=== PATIENT | male | born 1955 | race Two or more races ===

== ENCOUNTER 2019-11-25 11:43 | Outpatient (REF) | payer MEDICAID, SELFPAY | END 2019-11-25 11:44 | disposition home or self-care (01) | LOC: HO.WFDLDS 11:43 | PROVIDERS: Visit Provider Internal Medicine | DX: Z20.828 Contact with and (suspected) exposure to other viral communicable diseases (principal) | CPT/HCPCS: 87635 ==

== ENCOUNTER 2019-12-17 11:48 | Outpatient (REF) | payer MEDICAID, SELFPAY | END 2019-12-17 11:49 | disposition home or self-care (01) | LOC: HO.WFDLDS 11:48 | PROVIDERS: Visit Provider Internal Medicine | DX: Z20.828 Contact with and (suspected) exposure to other viral communicable diseases (principal) | CPT/HCPCS: U0003 ==

== ENCOUNTER 2020-03-10 09:52 | Outpatient (REF) | payer MEDICAID, SELFPAY | END 2020-03-10 09:53 | disposition home or self-care (01) | LOC: HO.WFDLDS 09:52 | PROVIDERS: Visit Provider Internal Medicine | DX: Z20.822 Contact with and (suspected) exposure to COVID-19 (principal) | CPT/HCPCS: 36415; C9803; U0003 ==

== ENCOUNTER 2020-08-06 12:19 | Outpatient (REF) | payer MEDICAID, SELFPAY ==
--- NOTE | ~2020-08-06 | XR_ITS ---
EXAMINATION: CR X-RAY CERVICAL, THORACIC, LUMBAR SPINE CLINICAL INFORMATION: Neck and back pain. COMPARISON: None TECHNIQUE: 3 views each of the cervical, thoracic and lumbar spine were obtained. FINDINGS: Cervical: Mild to moderate degenerative changes are seen at C5-6 and C6-7 with disc space narrowing, sclerosis and adjacent endplates and moderate marginal osteophyte formation. There is no acute fracture. The odontoid process is intact. The prevertebral soft tissues are unremarkable. Thoracic: Normal thoracic kyphosis and spinal alignment. Mild to moderate multilevel marginal osteophyte formation. No acute abnormality. Lumbar: Normal lumbar lordosis and spinal alignment. The vertebral bodies and intervertebral disc spaces are unremarkable. The facet joints are unremarkable. XR/XR cervical spine 3V IMPRESSION: 1. Multilevel degenerative changes in the cervical and thoracic spine as detailed above. No significant lumbar abnormality. No acute abnormality.
--- NOTE | ~2020-08-06 | XR_ITS ---
EXAMINATION: CR X-RAY CERVICAL, THORACIC, LUMBAR SPINE CLINICAL INFORMATION: Neck and back pain. COMPARISON: None TECHNIQUE: 3 views each of the cervical, thoracic and lumbar spine were obtained. FINDINGS: Cervical: Mild to moderate degenerative changes are seen at C5-6 and C6-7 with disc space narrowing, sclerosis and adjacent endplates and moderate marginal osteophyte formation. There is no acute fracture. The odontoid process is intact. The prevertebral soft tissues are unremarkable. Thoracic: Normal thoracic kyphosis and spinal alignment. Mild to moderate multilevel marginal osteophyte formation. No acute abnormality. Lumbar: Normal lumbar lordosis and spinal alignment. The vertebral bodies and intervertebral disc spaces are unremarkable. The facet joints are unremarkable. XR/XR lumbar spine 2-3V IMPRESSION: 1. Multilevel degenerative changes in the cervical and thoracic spine as detailed above. No significant lumbar abnormality. No acute abnormality.
--- NOTE | ~2020-08-06 | XR_ITS ---
EXAMINATION: CR X-RAY CERVICAL, THORACIC, LUMBAR SPINE CLINICAL INFORMATION: Neck and back pain. COMPARISON: None TECHNIQUE: 3 views each of the cervical, thoracic and lumbar spine were obtained. FINDINGS: Cervical: Mild to moderate degenerative changes are seen at C5-6 and C6-7 with disc space narrowing, sclerosis and adjacent endplates and moderate marginal osteophyte formation. There is no acute fracture. The odontoid process is intact. The prevertebral soft tissues are unremarkable. Thoracic: Normal thoracic kyphosis and spinal alignment. Mild to moderate multilevel marginal osteophyte formation. No acute abnormality. Lumbar: Normal lumbar lordosis and spinal alignment. The vertebral bodies and intervertebral disc spaces are unremarkable. The facet joints are unremarkable. XR/XR thoracic spine 3V IMPRESSION: 1. Multilevel degenerative changes in the cervical and thoracic spine as detailed above. No significant lumbar abnormality. No acute abnormality.
== END 2020-08-06 12:20 | disposition home or self-care (01) ==
LOC: HO.XRAY 12:19
PROVIDERS: PCP Internal Medicine Geriatric Medicine; Referring Provider Internal Medicine Geriatric Medicine; Visit Provider Registered Nurse
DX: M54.2 Cervicalgia (principal); M54.9 Dorsalgia, unspecified; V89.2XXA Person injured in unspecified motor-vehicle accident, traffic, initial encounter
CPT/HCPCS: 72040; 72072; 72100

== ENCOUNTER → 2021-07-27 08:12 | Outpatient (BNVA) | payer MEDICARE, MEDICAID, SELFPAY | PROVIDERS: PCP Internal Medicine Geriatric Medicine; Visit Provider Surgery | DX: R10.30 Lower abdominal pain, unspecified (principal); N50.89 Other specified disorders of the male genital organs; E11.9 Type 2 diabetes mellitus without complications; I10 Essential (primary) hypertension; E78.00 Pure hypercholesterolemia, unspecified; E66.01 Morbid (severe) obesity due to excess calories | CPT/HCPCS: 99202 ==

== ENCOUNTER → 2022-01-13 09:42 | Outpatient (BNVA) | payer OTHER, SELFPAY | PROVIDERS: PCP Internal Medicine Geriatric Medicine; Referring Provider Internal Medicine Geriatric Medicine; Visit Provider Surgery | DX: Z12.11 Encounter for screening for malignant neoplasm of colon (principal); R10.9 Unspecified abdominal pain | CPT/HCPCS: 99202 ==

== ENCOUNTER 2022-01-17 12:14 | Outpatient (REF) | payer OTHER, SELFPAY ==
[2022-01-17 14:26] LABS: Blood Urea Nitrogen 20 mg/dL (9-16); Estimated Glomerular Filt Rate > 60
== END 2022-01-17 12:15 | disposition home or self-care (01) ==
LOC: HO.LAB 12:14
PROVIDERS: PCP Internal Medicine Geriatric Medicine; Visit Provider Surgery
DX: R10.9 Unspecified abdominal pain (principal)
CPT/HCPCS: 36415; 82565; 84520

== ENCOUNTER 2022-03-09 10:26 | Outpatient (REF) | payer OTHER, SELFPAY ==
[2022-03-09 12:23] LABS: Blood Urea Nitrogen 19 mg/dL (9-16); Estimated Glomerular Filt Rate > 60
== END 2022-03-09 10:27 | disposition home or self-care (01) ==
LOC: HO.LAB 10:26
PROVIDERS: PCP Internal Medicine Geriatric Medicine; Visit Provider Surgery
DX: R10.9 Unspecified abdominal pain (principal)
CPT/HCPCS: 36415; 82565; 84520

== ENCOUNTER 2022-03-16 08:23 | Outpatient (REF) | payer OTHER, SELFPAY ==
--- NOTE | ~2022-03-16 | CT_ITS ---
EXAMINATION: CT ABDOMEN AND PELVIS WITH CONTRAST CLINICAL INFORMATION: Abdominal pain COMPARISON: None TECHNIQUE: Multidetector volumetric images were obtained from the superior aspect of the liver through the pubic symphysis following administration 85 mL of Omnipaque 350 intravenous contrast. Sagittal and coronal reformatted images were obtained on the technologist's workstation. Oral contrast: No This CT examination was performed using dose optimization techniques as appropriate, variously including the following: *Automated exposure control *Adjustment of mA and/or kV according to patient size (this includes techniques or standardized protocols for targeted exams where dose is matched to indication/reason for exam; i.e. extremities or head) *Use of iterative reconstruction technique DLP: 429 mGy-cm FINDINGS: LUNG BASES: The lung bases are clear. The heart size is normal. LIVER, GALLBLADDER, AND BILIARY TREE: The liver is normal in size, shape, and attenuation. No focal hepatic lesion or biliary ductal dilatation is present. The gallbladder is unremarkable with no evidence of radiopaque gallstones, gallbladder wall thickening, or obvious pericholecystic inflammatory changes. PANCREAS: Unremarkable. SPLEEN: Unremarkable. ADRENAL GLANDS: There is a 1.4 cm left adrenal lesion measuring -111 Hounsfield units suggestive of an adrenal lipoma. The right adrenal gland appears unremarkable KIDNEYS AND URETERS: The kidneys are normal in size, shape, and attenuation. No hydronephrosis, hydroureter, or calculi seen. No perinephric stranding. There is mild cortical thinning in both lower poles and midpole of kidneys. BLADDER: Unremarkable. GASTROINTESTINAL TRACT: There is scattered stool, diverticuli and gas seen throughout the colon without distention or diverticulitis. The small bowel loops are normal caliber. The appendix is normal caliber. ABDOMINAL WALL: No significant hernia is appreciated. LYMPH NODES: Normal. VASCULAR: Unremarkable. PELVIC VISCERA: Unremarkable. OSSEOUS STRUCTURES: No aggressive lytic or sclerotic process seen. CT/CT abdomen pelvis w IV con IMPRESSION: 1. No acute intra-abdominal process seen. 2. Colonic diverticulosis without diverticulitis. Mild constipation. 3. Bilateral cortical scarring. No radiopaque renal calculi or hydronephrosis. 4. Stable left adrenal lipoma. Fleischner guidelines were followed.
[2022-03-16] MEDS: iohexoL 350 MG/ML 100 ML INFUS..BTL IV (10:50)
== END 2022-03-16 08:24 | disposition home or self-care (01) ==
LOC: HO.CT 08:23
PROVIDERS: PCP Internal Medicine Geriatric Medicine; Visit Provider Surgery
DX: R10.9 Unspecified abdominal pain (principal)
CPT/HCPCS: 74177; Q9967

== ENCOUNTER → 2022-04-11 13:58 | Outpatient (BNVA) | payer OTHER, SELFPAY | PROVIDERS: PCP Internal Medicine Geriatric Medicine; Referring Provider Internal Medicine Geriatric Medicine; Visit Provider Surgery | DX: Z12.11 Encounter for screening for malignant neoplasm of colon (principal); R10.9 Unspecified abdominal pain | CPT/HCPCS: 99212 ==

== ENCOUNTER 2022-05-13 06:51 | Day surgery (SDC) | payer OTHER, SELFPAY ==
--- NOTE | 2022-05-12 11:43 | P.CONAN_ITS ---
Documented by User: Bonny Hay NP 05/12/22 11:44 HPI - Anesthesia Eval Consult details Narrative: 66yo M for Colonoscopy with poss Polypectomy PMFSH Active Problems Active Problems: All Active Problems (Updated 05/09/22 @ 15:00 by Carola Barry, JASMIN) Inguinodynia (Acute) Testicular swelling, left (Acute) DMII (diabetes mellitus, type 2) (Acute) HTN (hypertension) (Acute) Hypercholesterolemia (Acute) Morbid (severe) obesity due to excess calories (Acute) Encounter for screening colonoscopy (Acute) Abdominal pain (Acute) Past Medical History Medical History Abdominal pain Diabetes Elevated cholesterol Encounter for screening colonoscopy HTN (hypertension) Surgical History Surgical History H/O colonoscopy History of hernia surgery Social History Social History Alcohol intake: former Patient Tobacco Use Status: Never used Tobacco Use of substances other than those prescribed or required for medical reasons: No Are you DNR?: No Advance Directives: No Advance Directives Information Provided: Yes Meds Allergies Allergy/AdvReac Type Severity Reaction Status Date / Time Penicillins [PENICILLINS] Allergy Intermediate RASH, Unverified 04/11/22 14:18 ITCHY, THROAT SWELLING/SLIGHT. Home Medications Medication Instructions Recorded Confirmed Last Taken Type albuterol sulfate 90 mcg/actuation 2 puff PO Q4H PRN Wheezing 07/27/21 05/09/22 Unknown History aerosol inhaler (ProAir HFA) amlodipine 10 mg tablet 10 mg PO DAILY 07/27/21 05/09/22 Unknown History artificial tears(hypromellose) 0.3 2 drp ophthalmic (eye) QID PRN Dry 07/27/21 05/09/22 Unknown History % eye gel (Systane Gel) Eye(S) aspirin 81 mg tablet,delayed 81 mg PO DAILY 07/27/21 05/09/22 Unknown History release canagliflozin 100 mg tablet 100 mg PO DAILY 07/27/21 05/09/22 Unknown History (Invokana) cholecalciferol (vitamin D3) 50 50 mcg PO DAILY 07/27/21 05/09/22 Unknown History mcg (2,000 unit) tablet clonazepam 0.5 mg tablet 0.5 mg PO BID PRN Anxiety 07/27/21 05/09/22 Unknown History diclofenac sodium 1 % topical gel 2 g topical QID 07/27/21 05/09/22 Unknown History dorzolamide 22.3 mg-timolol 6.8 1 drp ophthalmic (eye) BID 07/27/21 05/09/22 Unknown History mg/mL eye drops dulaglutide 1.5 mg/0.5 mL 1.5 mg subcut QWEEK 07/27/21 05/09/22 Unknown History subcutaneous pen injector (Trulicity) fluticasone propionate 50 1 spray intranasal BID 07/27/21 05/09/22 Unknown History mcg/actuation nasal spray,suspension latanoprost 0.005 % eye drops 1 drp ophthalmic (eye) QPM 07/27/21 05/09/22 Unknown History lidocaine 5 % topical patch 1 patch topical DAILY 07/27/21 05/09/22 Unknown History lisinopril 20 1 tab PO DAILY 07/27/21 05/09/22 Unknown History mg-hydrochlorothiazide 12.5 mg tablet loperamide 2 mg capsule 2 mg PO Q6H PRN loose stools 07/27/21 05/09/22 Unknown History metformin 500 mg tablet 1,000 mg PO QAM 07/27/21 05/09/22 Unknown History nitroglycerin 0.4 mg sublingual 0.4 mg sublingual Q5M PRN Chest 07/27/21 05/09/22 Unknown History tablet Pain omeprazole 40 mg capsule,delayed 40 mg PO DAILY 07/27/21 05/09/22 Unknown History release paroxetine HCl 20 mg tablet 20 mg PO DAILY 07/27/21 05/09/22 Unknown History pravastatin 20 mg tablet 20 mg PO BEDTIME 07/27/21 05/09/22 Unknown History tamsulosin 0.4 mg capsule 0.4 mg PO DAILY 07/27/21 05/09/22 Unknown History tizanidine 4 mg tablet 4 mg PO BEDTIME 07/27/21 05/09/22 Unknown History trazodone 100 mg tablet 100 mg PO BEDTIME 07/27/21 05/09/22 Unknown History Exam Exam Date and Time: May 12, 2022 1143 Pertinent Lab Results Pertinent Lab Results: Laboratory Tests 03/09/22 10:41 BUN 19 H Creatinine 0.88 Assessment and Plan Assessment Anesthesia Assessment: Chart Reviewed Documented by User: Sindi Pepper MD 05/13/22 07:56 HPI - Anesthesia Eval Consult details Narrative: 66yo M for Colonoscopy with poss Polypectomy. Colonoscopy 2017. Inadequate prep PMFSH Active Problems Active Problems: All Active Problems (Updated 05/13/22 @ 07:25 by Carola Barry RN) Inguinodynia (Acute) Testicular swelling, left (Acute) DMII (diabetes mellitus, type 2) (Acute) HTN (hypertension) (Acute) Hypercholesterolemia (Acute) Morbid (severe) obesity due to excess calories (Acute) Encounter for screening colonoscopy (Acute) Abdominal pain (Acute) Asthma Anxiety/Depression ?Coronary Artery Disease BPH Denies [place] historian Past Medical History Medical History Abdominal pain Diabetes Elevated cholesterol Encounter for screening colonoscopy HTN (hypertension) Family History Family history of problems with anesthesia: No Surgical History Surgical History H/O colonoscopy History of hernia surgery History of Problems with Anesthesia: No Social History Social History Alcohol intake: former Patient Tobacco Use Status: Never used Tobacco Use of substances other than those prescribed or required for medical reasons: No Are you DNR?: No Advance Directives: No Advance Directives Information Provided: Yes Meds Allergies Allergy/AdvReac Type Severity Reaction Status Date / Time Penicillins [PENICILLINS] Allergy Intermediate RASH, Unverified 04/11/22 14:18 ITCHY, THROAT SWELLING/SLIGHT. Home Medications Medication Instructions Recorded Confirmed Last Taken Type albuterol sulfate 90 mcg/actuation 2 puff PO Q4H PRN Wheezing 07/27/21 05/09/22 Unknown History aerosol inhaler (ProAir HFA) amlodipine 10 mg tablet 10 mg PO DAILY 07/27/21 05/09/22 Unknown History artificial tears(hypromellose) 0.3 2 drp ophthalmic (eye) QID PRN Dry 07/27/21 05/09/22 Unknown History % eye gel (Systane Gel) Eye(S) aspirin 81 mg tablet,delayed 81 mg PO DAILY 07/27/21 05/09/22 Unknown History release canagliflozin 100 mg tablet 100 mg PO DAILY 07/27/21 05/09/22 Unknown History (Invokana) cholecalciferol (vitamin D3) 50 50 mcg PO DAILY 07/27/21 05/09/22 Unknown History mcg (2,000 unit) tablet clonazepam 0.5 mg tablet 0.5 mg PO BID PRN Anxiety 07/27/21 05/09/22 Unknown History diclofenac sodium 1 % topical gel 2 g topical QID 07/27/21 05/09/22 Unknown History dorzolamide 22.3 mg-timolol 6.8 1 drp ophthalmic (eye) BID 07/27/21 05/09/22 Unknown History mg/mL eye drops dulaglutide 1.5 mg/0.5 mL 1.5 mg subcut QWEEK 07/27/21 05/09/22 Unknown History subcutaneous pen injector (Trulicity) fluticasone propionate 50 1 spray intranasal BID 07/27/21 05/09/22 Unknown History mcg/actuation nasal spray,suspension latanoprost 0.005 % eye drops 1 drp ophthalmic (eye) QPM 07/27/21 05/09/22 Unknown History lidocaine 5 % topical patch 1 patch topical DAILY 07/27/21 05/09/22 Unknown History lisinopril 20 1 tab PO DAILY 07/27/21 05/09/22 Unknown History mg-hydrochlorothiazide 12.5 mg tablet loperamide 2 mg capsule 2 mg PO Q6H PRN loose stools 07/27/21 05/09/22 Unknown History metformin 500 mg tablet 1,000 mg PO QAM 07/27/21 05/09/22 Unknown History nitroglycerin 0.4 mg sublingual 0.4 mg sublingual Q5M PRN Chest 07/27/21 05/09/22 Unknown History tablet Pain omeprazole 40 mg capsule,delayed 40 mg PO DAILY 07/27/21 05/09/22 Unknown Histo ry release paroxetine HCl 20 mg tablet 20 mg PO DAILY 07/27/21 05/09/22 Unknown History pravastatin 20 mg tablet 20 mg PO BEDTIME 07/27/21 05/09/22 Unknown History tamsulosin 0.4 mg capsule 0.4 mg PO DAILY 07/27/21 05/09/22 Unknown History tizanidine 4 mg tablet 4 mg PO BEDTIME 07/27/21 05/09/22 Unknown History trazodone 100 mg tablet 100 mg PO BEDTIME 07/27/21 05/09/22 Unknown History Exam Height,Weight and Vital Signs: Height 5 ft 6 in Weight 89.811 kg Vital Signs Temp Pulse Resp BP Pulse Ox O2 Del Method 05/13/22 07:44 97.0 F 65 18 134/80 99 Room Air Pertinent Lab Results Pertinent Lab Results: Laboratory Tests 03/09/22 10:41 BUN 19 H Creatinine 0.88 Lab Results 05/13/22 Range/Units 07:16 POC Glucose 128 H (60-115) mg/dL Airway Mallampati Class: II TM Dist: >3cm Neck ROM: Full Loose/Missing/Broken Teeth: Yes (Some missing. Denies broken or loose teeth) Heart: RRR Lungs: CTAB Assessment and Plan Assessment Anesthesia Assessment: Anesthesia Plan Discussed Final Anesthetic Review Family History of Problems with Anesthesia: No History of Problems with Anesthesia: No NPO: Yes ASA Class: III Final Preanesthetic Review: No Changes in Pt Med Stat, Meds/Allgs Chart Reviewed, Consent Obtained/Reviewed and Anes Risks/Benef Reviewed Patient Risk: Intermediate Procedure Risk: Low Assessment/Block/Sedation in SS: Assess/Block/Sedation-SS Anesthetic Plan Anesthetic Plan: MAC: Disposition: Standard PACU
[2022-05-13 07:23] LABS: Glucose, Whole Blood 128 mg/dL (60-115)
[2022-05-13 07:26] VITALS: BMI 31.9
[2022-05-13 07:44] VITALS: BP 134/80; PULSE 65; RESP 18; TEMP 36.1; O2SAT 99
[2022-05-13] MEDS: Lactated Ringers 1,000 ML 100 ML IVCONT (07:47)
--- NOTE | 2022-05-13 09:02 | MHC.SHP ---
Pre-Procedural Eval Section A Date of Service: 05/13/22 Section B Chief Complaint: screening Details of Present Illness: had sub optimal bowel prep on colonoscopy in 2018, here for repeat colonoscopy Relevant Social History: None Present Medications: see Short Stay Collaborative assessment Medical History: Significant History ( diabetes, hyperlipidemia, obesity) Allergies: Allergies Allergy/AdvReac Type Severity Reaction Status Date / Time Penicillins [PENICILLINS] Allergy Intermediate RASH, Unverified 04/11/22 14:18 ITCHY, THROAT SWELLING/SLIGHT. Review of Systems Sugical H&P ROS: Negative: Constitution, Cardiovascular, Respiratory, Neurological, Psychiatric, Hem-Onc, Allergic/Immunologic, Gastrointestinal, Genitourinary, Musculoskeletal, Integumentary, Endocrine and Eyes/Ears/Nose/Throat Exam Surgical H&P Exam: Normal: HEENT, Normal: Heart, Normal: Lungs, Normal: Extremities, Normal: Abdomen, Normal: Skin and Normal: Neurological Plan Diagnosis/Plan: Unchanged I have reviewed the history and physical and performed a pertinent physical examination on my patient. No changes have occurred unless specified. Time Spent With Patient Time: Total time managing care of this patient today ____ minutes.
--- NOTE | 2022-05-13 09:02 | W.PM.OPN ---
Operative Note Operative Note Date of Service: 05/13/22 Narrative: Preop diagnosis: Colon cancer screening Postop diagnosis: Mild diverticulosis throughout the colon otherwise normal colonoscopy findings Procedure: Colonoscopy Surgeon: Rei Pabon MD The patient is a 66-year-old male who had a colonoscopy in 2018 with suboptimal bowel prep. I had recommended a 5 year follow-up. He understood the technique of the planned procedure. He was aware of the risks, benefits, and alternatives. The patient was brought to the operating room and placed in left lateral decubitus position under monitored anesthesia care. A surgical time-out was done. A full digital rectal exam was done and this did not reveal any significant anal lesions. The tip of the Olympus colonoscope was gently introduced through the anal orifice advanced with insufflation all the way to the cecum. The cecum was intubated. The cecum was identified by visualization of the ileocecal valve as well as the appendiceal orifice. The cecal mucosa was unremarkable. The scope was gradually withdrawn with careful examination of the entire colonic mucosa being done with scope withdrawal. The patient had adequate bowel prep so it was unlikely that any lesion may have been missed. there was note of occasional scattered diverticuli throughout the colon. The rectum was reached and there were no lesions seen. The anal canal was unremarkable. The scope was then withdrawn completely with desufflation The patient tolerated the procedure well. There were no immediate complications. [His] next colonoscopy may be in the next [10] years.
[2022-05-13 09:06] VITALS: BP 101/66; PULSE 75; RESP 18; TEMP 36.2; O2SAT 94
[2022-05-13 09:21] VITALS: BP 129/87; PULSE 89; RESP 16; TEMP 36.1; O2SAT 95
== END 2022-05-13 09:46 | disposition home or self-care (01) ==
PROVIDERS: PCP Internal Medicine Geriatric Medicine; Visit Provider Surgery
PROC: 0DBE8ZZ Excision of Large Intestine, Via Natural or Artificial Opening Endoscopic (ICD-10-PCS; CPT G0121; principal; 2022-05-13 08:30)
DX: Z12.11 Encounter for screening for malignant neoplasm of colon (principal); K57.30 Diverticulosis of large intestine without perforation or abscess without bleeding; R10.9 Unspecified abdominal pain; I10 Essential (primary) hypertension; E78.00 Pure hypercholesterolemia, unspecified; E11.9 Type 2 diabetes mellitus without complications; Z79.85 Long-term (current) use of injectable non-insulin antidiabetic drugs; Z79.82 Long term (current) use of aspirin; Z79.899 Other long term (current) drug therapy; Z88.0 Allergy status to penicillin
CPT/HCPCS: G0121; 82947

== ENCOUNTER → 2022-05-26 13:28 | Outpatient (BNVA) | payer OTHER, SELFPAY | PROVIDERS: PCP Internal Medicine Geriatric Medicine; Visit Provider Surgery | DX: Z12.11 Encounter for screening for malignant neoplasm of colon (principal); K57.90 Diverticulosis of intestine, part unspecified, without perforation or abscess without bleeding | CPT/HCPCS: 99212 ==

== ENCOUNTER 2022-12-08 09:32 | Outpatient (REF) | payer OTHER, SELFPAY ==
[2022-12-08 11:50] LABS: Estimated Average Glucose 148 mg/dL; Hemoglobin A1c % 6.8 % (<6.0)
[2022-12-08 12:09] LABS: Anion Gap 13 (12-20); Blood Urea Nitrogen 17 mg/dL (9-16); Calcium 9.1 mg/dL (8.4-10.2); Carbon Dioxide 29 mmol/L (22-29); Chloride 104 mmol/L (96-108); Estimated Glomerular Filt Rate > 60; Glucose Random 103 mg/dL (60-115); Potassium 3.9 mmol/L (3.3-5.1); Sodium 142 mmol/L (135-145)
== END 2022-12-08 09:33 | disposition home or self-care (01) ==
LOC: HO.HHCL 09:32
PROVIDERS: Visit Provider Internal Medicine Geriatric Medicine
DX: E11.42 Type 2 diabetes mellitus with diabetic polyneuropathy (principal); I10 Essential (primary) hypertension; Z79.4 Long term (current) use of insulin
CPT/HCPCS: 36415; 80048; 83036

== ENCOUNTER 2023-06-30 09:29 | Outpatient (REF) | payer OTHER, SELFPAY ==
[2023-06-30 11:57] LABS: Alanine Aminotransferase 21 U/L (0-40); Albumin Level 4.4 g/dL (3.5-5.0); Alkaline Phosphatase 68 U/L (39-117); Anion Gap 13 (12-20); Aspartate Amino Transferase 28 U/L (5-37); Bilirubin Total 0.5 mg/dL (0.0-1.0); Blood Urea Nitrogen 17 mg/dL (9-16); Calcium 9.1 mg/dL (8.4-10.2); Carbon Dioxide 30 mmol/L (22-29); Chloride 102 mmol/L (96-108); Cholesterol 112 mg/dL (<200); Estimated Glomerular Filt Rate > 60; Glucose Random 113 mg/dL (60-115); HDL Cholesterol 49 mg/dL (>40); LDL Cholesterol Calculated 38 mg/dL (<100); Sodium 141 mmol/L (135-145); Total Protein 8.4 g/dL (6.5-8.0); Triglycerides 127 mg/dL (<150)
[2023-06-30 12:38] LABS: Creatinine Urine 76.92 mg/dL; Microalbum/Creatinine Ratio Ur 18.2 ug/mg cr (<30)
== END 2023-06-30 09:30 | disposition home or self-care (01) ==
LOC: HO.HHCL 09:29
PROVIDERS: Visit Provider Internal Medicine Geriatric Medicine
DX: E11.42 Type 2 diabetes mellitus with diabetic polyneuropathy (principal); Z79.4 Long term (current) use of insulin
CPT/HCPCS: 36415; 80053; 80061; 82043; 82570

== ENCOUNTER 2023-08-30 10:13 | Outpatient (REF) | payer OTHER, SELFPAY ==
[2023-08-30 11:16] LABS: MANUAL DIFF FLAG NO
[2023-08-30 11:21] LABS: Basophils Absolute Auto 0.1 X10*3/uL (0.0-0.2); Basophils Percent Auto 0.9 % (0-2); Eosinophils Absolute Auto 0.3 X10*3/uL (0.0-0.4); Eosinophils Percent Auto 4.3 % (0-4); Hematocrit 42.5 % (42.0-52.0); Hemoglobin 13.3 g/dl (14.0-18.0); Imm Gran Abs Auto 0.01 X10*3/uL (0.00-0.03); Imm Gran Pct Auto 0.2 % (0.0-0.4); Lymphocytes Absolute Auto 2.1 X10*3/uL (1.2-4.9); Mean Corpuscular HGB Conc 31.3 g/dl (31.0-36.0); Mean Corpuscular Hemoglobin 25.9 pg (27.0-33.0); Mean Corpuscular Volume 82.7 fL (80.0-98.0); Mean Platelet Volume 10.6 fL (9.4-12.4); Monocytes Absolute Auto 0.5 X10*3/uL (0.1-1.2); Monocytes Percent Auto 8.2 % (2-11); Neutrophils Absolute Auto 3.6 x10*3/uL (2.0-8.3); Neutrophils Percent Auto 54.4 % (45-73); Platelet Count 255 X10*3/uL (160-400); Red Blood Count 5.14 X10*6/uL (4.60-5.80); Red Cell Distribution Width 15.5 % (11.0-16.0); White Blood Count 6.6 X10*3/uL (4.8-10.8)
[2023-08-30 11:59] LABS: Alanine Aminotransferase 17 U/L (0-40); Albumin Level 4.1 g/dL (3.5-5.0); Alkaline Phosphatase 66 U/L (39-117); Anion Gap 12 (12-20); Aspartate Amino Transferase 20 U/L (5-37); Bilirubin Total 0.4 mg/dL (0.0-1.0); Blood Urea Nitrogen 17 mg/dL (9-16); Calcium 9.5 mg/dL (8.4-10.2); Carbon Dioxide 27 mmol/L (22-29); Chloride 108 mmol/L (96-108); Estimated Glomerular Filt Rate > 60; Glucose Random 108 mg/dL (60-115); Lipase 41 U/L (8-78); Potassium 3.3 mmol/L (3.3-5.1); Sodium 144 mmol/L (135-145); Total Protein 7.5 g/dL (6.5-8.0)
== END 2023-08-30 10:14 | disposition home or self-care (01) ==
LOC: HO.HHCL 10:13
PROVIDERS: Visit Provider Internal Medicine Geriatric Medicine
DX: R10.84 Generalized abdominal pain (principal)
CPT/HCPCS: 36415; 80053; 83690; 85025

== ENCOUNTER 2023-09-06 08:02 | Outpatient (REF) | payer OTHER, SELFPAY ==
--- NOTE | ~2023-09-06 | US_ITS ---
EXAMINATION: US ABDOMEN COMPLETE CLINICAL INFORMATION: Generalized colicky abdominal pain on and off for several months. COMPARISON: CT abdomen and pelvis 03/16/2022. TECHNIQUE: Real-time imaging of the abdominal viscera. FINDINGS: PANCREAS: Not well visualized due to shadowing from overlying bowel gas. ABDOMINAL AORTA: The proximal, mid, and distal segments are normal in caliber. INFERIOR VENA CAVA: Visualized portions are normal. LIVER: The liver is normal in size. The liver contour is normal. Increased parenchymal echogenicity. No focal hepatic lesion. There is no intrahepatic biliary duct dilatation seen. GALLBLADDER: Normal. The gallbladder is physiologically distended without evidence of stones, sludge, polyps, wall thickening or pericholecystic fluid. COMMON BILE DUCT: Normal in caliber measuring 0.2 cm in diameter. RIGHT KIDNEY: Normal. No hydronephrosis. No renal calculi or focal parenchymal lesions. The kidney measures 11.6 cm in maximum dimension. LEFT KIDNEY: Normal. No hydronephrosis. No renal calculi or focal parenchymal lesions. The kidney measures 10.8 cm in maximum dimension. SPLEEN: Normal. The spleen measures 8.8 cm in maximum dimension. FREE FLUID: None. US/US abdomen complete IMPRESSION: 1. Limited examination due to shadowing from overlying bowel gas. 2. Increased hepatic parenchymal echogenicity is nonspecific and could be seen in the setting of hepatic steatosis or hepatocellular disease. Correlate with liver function tests.
== END 2023-09-06 08:03 | disposition home or self-care (01) ==
LOC: HO.US 08:02
PROVIDERS: PCP Internal Medicine Geriatric Medicine; Visit Provider Internal Medicine Geriatric Medicine
DX: R10.84 Generalized abdominal pain (principal)
CPT/HCPCS: 76700

== ENCOUNTER 2024-07-25 08:12 | Outpatient (REF) | payer OTHER, SELFPAY ==
--- OUTSIDE RECORDS SUMMARY | 2024-07-25 08:17 | XMS_ITS | Encounter Summary ---
Author Organization [employer] Address [address] [place] [address] Care Team Providers Care Sales Representative Jewelry Name Role Phone Name, John VUONG Primary Care Provider [phone] Reason for Visit * Reason Comments Med Refill Encounter Details Date Type Department Care Team ([facility] st Contact Info) Description 02/13/2023 Refill [facility] [address], [place] [id number] Name, MD John [address], [place] [id number] Heartburn Social History Tobacco Use Types Packs/Day Years Used Date Smoking Tobacco: Never Smokeless Tobacco: Never Alcohol Use Standard Drinks/Week Comments Never 0 (1 standard drink = 0.6 oz pur e alcohol) Depression Answer Date Recorded Patient Health Questionnaire-9 Score 5 08/11/2022 Housing Stability Answer Date Recorded What is your housing situation today? I have [employer] 12/05/[address] you li ve. Do you have problems with any of the following? None of the above 12/05/2022 Food Insecurity Answer Date Recorded Within the past 12 months, y ou worried that your food would run out before you got money to buy more: Never True 12/05/2022 Within the past 12 months,th e food you bought just didn't last and you didn't have enough money to get more: Never True Transportation Answer Date Recorded In the past 12 months, has l ack of transportation kept you from medical appts, meetings, work or from getting things needed for daily living? No 12/05/2022 Utilities Answer Date Recorded In the past 12 months, has t he electric, gas, oil or water company threatened to shut off services in your home? No 12/05/2022 Depression Answer Date Recorded Patient Health Questionnaire-2 Score 2 08/11/2022 Sex and Gender Information Value Date Recorded Sex Assigned at Male 12/13/2021 10:17 AM EDT Legal Sex Male 10:17 AM EDT Gender Identity Male 12/13/2021 10:17 AM EDT Sexual Orientation Straight 12/13/2021 10 :17 AM EDT documented as of this encounter Plan of Treatment Not on file documented as of this encounter Visit Diagnoses Diagnosis Heartburn documented in this encounter Additional Health Concerns Assessment Noted Time PHQ-9 Depression Total Score: 5 08/12/19 8:54 AM EDT documented as of this encounter Care Teams Sales Representative Jewelry Relationship Specialty Start Date End Date Name, MD John [address] [place] [address] PCP - General Family Medicine 03/23/15 [employer] 02/25/22 documented as of this encounter
[2024-07-25 11:36] LABS: Alanine Aminotransferase 15 U/L (0-40); Albumin Level 4.1 g/dL (3.5-5.0); Alkaline Phosphatase 63 U/L (39-117); Anion Gap 8 (12-20); Aspartate Amino Transferase 22 U/L (5-37); Bilirubin Total 0.5 mg/dL (0.0-1.0); Blood Urea Nitrogen 17 mg/dL (9-16); Calcium 8.4 mg/dL (8.4-10.2); Carbon Dioxide 32 mmol/L (22-29); Chloride 106 mmol/L (96-108); Cholesterol 102 mg/dL (<200); Estimated Glomerular Filt Rate > 60; Glucose Random 103 mg/dL (60-115); HDL Cholesterol 43 mg/dL (>40); LDL Cholesterol Calculated 38 mg/dL (<100); Sodium 142 mmol/L (135-145); Total Protein 7.3 g/dL (6.5-8.0); Triglycerides 107 mg/dL (<150)
[2024-07-25 11:50] LABS: Creatinine Urine 146.27 mg/dL; Microalbum/Creatinine Ratio Ur 8.8 ug/mg cr (<30)
== END 2024-07-25 08:13 | disposition home or self-care (01) ==
LOC: HO.HHCL 08:12
PROVIDERS: Visit Provider Internal Medicine Geriatric Medicine
DX: E11.42 Type 2 diabetes mellitus with diabetic polyneuropathy (principal); Z79.4 Long term (current) use of insulin
CPT/HCPCS: 36415; 80053; 80061; 82043; 82570

== ENCOUNTER 2024-10-18 09:58 | Outpatient (REF) | payer OTHER, SELFPAY ==
--- OUTSIDE RECORDS SUMMARY | 2024-10-18 10:52 | XMS_ITS | Encounter Summary ---
Author Organization [employer] Address 75 [facility] 7t [place] [address] Care Team Providers Care Dining Manager Name Role Phone Name, John VUONG Primary Care Provider [phone] Reason for Visit * Reason Comments Med Refill Encounter Details Date Type Department Care Team ([facility] Contact Info) Description 02/24/2024 Refill [facility] [address] [place], [place] [phone] Name, MD John [address] [place], [place] [phone] Type 2 diabetes mellitus with other specified complication, unspecified whether chcf insulin use ([facility]) Social History Tobacco Use Types Packs/Day Years Used Date Smoking Tobacco: Never Passive Smoke Exposure: Never Smokeless Tobacco: Never Alcohol Use Standard Drinks/Week Comments Never 0 (1 standard drink = 0.6 oz pur e alcohol) Depression Answer Date Recorded Patient Health Questionnaire-9 Score 6 03/31/2023 Patient Health Questionnaire-9 Score 6 03/31/2023 Last PHQ-9: Questionnaire Data Not on file 0 03/31/2023 Housing Stability Answer Date Recorded What is your housing situation today? I have guanako walters 08/30/[address] you li ve. Do you have problems with any of the following? None of the above 08/30/2023 Food Insecurity Answer Date Recorded Within the past 12 months, y ou worried that your food would run out before you got money to buy more: Never True 08/30/2023 Within the past 12 months,th e food you bought just didn't last and you didn't have enough money to get more: Never True Transportation Answer Date Recorded In the past 12 months, has l ack of transportation kept you from medical appts, meetings, work or from getting things needed for daily living? No 08/30/2023 Utilities Answer Date Recorded In the past 12 months, has t he electric, gas, oil or water company threatened to shut off services in your home? No 08/30/2023 Depression Answer Date Recorded Patient Health Questionnaire-2 Score 2 03/31/2023 Internet Access Answer Date Recorded Internet Access Q1 No 10/16/2023 Internet Access Q2 I do not want or need it 03/2023 Sex and Gender Information Value Date Recorded Sex Assigned at Male 12/13/2021 10:17 AM EDT Legal Sex Male 10:17 AM EDT Gender Identity Male 12/13/2021 10:17 AM EDT Sexual Orientation Straight 12/13/2021 10 :17 AM EDT documented as of this encounter Plan of Treatment Upcoming Encounters Date Type Department Care Team (Late st Contact Info) Description 12/11/2024 10:45 AM EDT Office Visit [facility] [address] [place] [address] NameJohn MD [address] [place] [address] documented as of this encounter Visit Diagnoses Diagnosis Type 2 diabetes mellitus with other specified complication, unspecified whether terminal clerk insulin use ([facility]) documented in this encounter Additional Health Concerns Assessment Noted Time PHQ-9 Depression Total Score: 6 03/31/19 24 8:50 AM EST documented as of this encounter Care Teams Dining Manager Relationship Specialty Start Date End Date John Castañeda MD [address] [place] [address] PCP - General Family Medicine 03/23/15 [employer] 02/25/22 documented as of this encounter
--- OUTSIDE RECORDS SUMMARY | 2024-10-18 10:52 | XMS_ITS | Encounter Summary ---
Author Organization [employer] Address 75 [facility] 7t [place] [address] Care Team Providers Care Staffing Manager Name Role Phone Name, John VUONG Primary Care Provider [phone] Reason for Visit * Reason Comments Med Refill Encounter Details Date Type Department Care Team ([facility] st Contact Info) Description 02/23/2024 Refill [facility] 230 [place], [place] [phone] Name, MD John 230 [place], [place] [phone] Type 2 diabetes mellitus with other specified complication, unspecified whether assisted insulin use ([facility]) Social History Tobacco Use Types Packs/Day Years [...] Description 12/11/2024 10:45 AM EDT Office Visit [facility] [address] [place] [address] NameJohn MD 230 [place] [address] documented as of this encounter Visit Diagnoses Diagnosis Type 2 diabetes mellitus with other specified complication, unspecified whether ocean transportation intermediary insulin use ([facility]) documented in this encounter Additional Health Concerns Assessment Noted Time PHQ-9 Depression Total Score: 6 03/31/19 24 8:50 AM EST documented as of this encounter Care Teams Staffing Manager Relationship Specialty Start Date End Date John Castañeda MD [address] [address] PCP - General Family Medicine 03/23/15 [employer] 02/25/22 documented as of this encounter
--- OUTSIDE RECORDS SUMMARY | 2024-10-18 10:52 | XMS_ITS | Encounter Summary ---
Author Organization [employer] [facility] Address 75 [facility] 7t [place] [address] Care Team Providers Care Automobile Brakes Bonder Name Role Phone Name, John VUONG Primary Care Provider [phone] Encounter Details Date Type Department Care Team (Latest Contact Info) Description 07/29/2020 Abstract [facility] CONVERSION[facility] Dental, Provider, DDS Social History Tobacco Use Types Packs/Day Years Used Date Smoking Tobacco: Never Assessed Sex and Gender Information Value Date Recorded Sex Assigned at Male 12/13/2021 10:17 AM EDT Legal Sex Male 10:17 AM EDT Gender Identity Male 12/13/2021 10:17 AM EDT Sexual Orientation Straight 12/13/2021 10 :17 AM EDT documented as of this encounter Plan of Treatment Upcoming Encounters Date Type Department Care Team (Late st Contact Info) Description 12/11/2024 10:45 AM EDT Office Visit [facility] [address] [place] [address] Name, MD John 230 [place] [address] documented as of this encounter Visit Diagnoses Not on filedocumented in this encounter Care Teams Automobile Brakes Bonder Relationship Specialty Start Date End Date Name, MD John 230 [place] [address] PCP - General Family Medicine 03/23/15 [employer] 02/25/22 documented as of this encounter
--- OUTSIDE RECORDS SUMMARY | 2024-10-18 10:52 | XMS_ITS | Clinical Summary ---
Author Organization [facility] Address [address] [place] [address] Care Team Providers Care Automotive Electrician Name Role Phone Name, John VUONG Primary Care Provider Social History Tobacco Use Types Packs/Day Years Used Date Smoking Tobacco: Never Assessed Sex and Gender Information Value Date Recorded Sex Assigned at Not on file Legal Sex Male 4:52 AM EST Gender Identity Not on file Sexual Orientation Not on file Plan of Treatment Health Maintenance Due Date Last Done Comments Zoster Vaccines (1 of 2) 2006 Pneumococcal Vaccine: 50+ Years (2 of 2 - PCV) 03/05/2008 03/05/2007 DTaP,Tdap,and Td Vaccines (2 - Td or Tdap) 12/01/2020 12/01/2010 Depression Screening 02/14/2024 COVID-19 Vaccine (1 - season) 2024 Influenza Vaccine (#1) 2024 5, 11/26/2013, 11/09/2012, Additional history exists RSV Immunization Adult Patients (1 - 1-dose 75+ series) 07/11/2031 HIB Vaccines Aged Out No longer eligi ble based on patient's age to complete this topic HPV Vaccines Aged Out No longer eligi ble based on patient's age to complete this topic Hepatitis A Vaccines Aged Out No long er eligible based on patient's age to complete this topic Hepatitis B Vaccines Aged Out No long er eligible based on patient's age to complete this topic IPV Vaccines Aged Out No longer eligi ble based on patient's age to complete this topic MMR Vaccines Aged Out No longer eligi ble based on patient's age to complete this topic Meningococcal ACWY Vaccine Aged Out N o longer eligible based on patient's age to complete this topic Meningococcal B Vaccine Aged Out No l onger eligible based on patient's age to complete this topic RSV Immunization Patients Under 20 months Aged Out No longer eligible based on patient's age to complete this topic Varicella Vaccines Aged Out No longer eligible based on patient's age to complete this topic Care Teams Automotive Electrician Relationship Specialty Start Date End Date Name, MD John [address] [place], [place] PCP - General Internal Medicine 08/04/09
--- OUTSIDE RECORDS SUMMARY | 2024-10-18 10:52 | XMS_ITS | Encounter Summary ---
Author Organization [employer] Address 75 [facility] 7t [place] [address] Care Team Providers Care Sterile Preparation Technician Name Role Phone Name, John VUONG Primary Care Provider [phone] Reason for Visit * Reason Comments Med Refill Encounter Details Date Type Department Care Team ([facility] st Contact Info) Description 02/13/2023 Refill [facility] [address] [place], [place] [phone] Name, MD John [address] [place], [place] [phone] Heartburn Social History Tobacco Use Types Packs/Day [...] Description 12/11/2024 10:45 AM EDT Office Visit [facility] [address] [place] [address] Name, MD John [address] [place] [address] documented as of this encounter Visit Diagnoses Diagnosis Heartburn documented in this encounter Additional Health Concerns Assessment Noted Time PHQ-9 Depression Total Score: 5 08/12/19 23 8:54 AM EDT documented as of this encounter Care Teams Sterile Preparation Technician Relationship Specialty Start Date End Date John Castañeda MD [address] [place] [address] PCP - General Family Medicine 03/23/15 [employer] 02/25/22 documented as of this encounter
--- OUTSIDE RECORDS SUMMARY | 2024-10-18 10:52 | XMS_ITS | Encounter Summary ---
Author Organization [employer] Address 75 [facility] 7t [place] [address] Care Team Providers Care Scabbler Name Role Phone Name, John VUONG Primary Care Provider [phone] Reason for Visit * Reason Comments Med Refill Encounter Details Date Type Department Care Team ([facility] Contact Info) Description 02/23/2024 Refill [facility] 230 [place], [place] [phone] Name, MD John 230 [place], [place] [phone] Social History Tobacco Use Types Packs/Day Years [...] Description 12/11/2024 10:45 AM EDT Office Visit [facility] [address] [place] [address] Name, MD John [address] [place] [address] documented as of this encounter Visit Diagnoses Not on filedocumented in this encounter Additional Health Concerns Assessment Noted Time PHQ-9 Depression Total Score: 6 03/31/19 24 8:50 AM EST documented as of this encounter Care Teams Scabbler Relationship Specialty Start Date End Date NameJohn MD [address] [place] [address] PCP - General Family Medicine 03/23/15 [employer] 02/25/22 documented as of this encounter
--- OUTSIDE RECORDS SUMMARY | 2024-10-18 10:52 | XMS_ITS | Encounter Summary ---
Author Organization [facility] Address 75 [facility] 7t [place] [address] Care Team Providers Care General Clerk Name Role Phone Name, John VUONG Primary Care Provider [phone] Encounter Details Date Type Department Care Team (Latest Contact Info) Description 11/06/2018 Abstract [facility] CONVERSION[facility] Dental, Provider, DDS Social History Tobacco [...] Description 12/11/2024 10:45 AM EDT Office Visit [facility] 230 [place] [address] NameJohn MD 230 [place] [address] documented as of this encounter Visit Diagnoses Not on filedocumented in this encounter Care Teams General Clerk Relationship Specialty Start Date End Date Name, MD John 230 [place] [address] PCP - General Family Medicine 03/23/15 [employer] 02/25/22 documented as of this encounter
--- OUTSIDE RECORDS SUMMARY | 2024-10-18 10:52 | XMS_ITS | Encounter Summary ---
Author Organization [employer] Address 75 [facility] 7t [place] [address] Care Team Providers Care Joint Cutter Machine Name Role Phone Name, John VUONG Primary Care Provider [phone] Encounter Details Date Type Department Care Team (Late st Contact Info) Description 12/29/2022 Orders Only [facility] MED & PEDS [address] [place] [address] Greta Mendez LPN Social History Tobacco Use Types Packs/Day Years [...] Description 12/11/2024 10:45 AM EDT Office Visit [facility] MEDICINE 230 [place] [address] Name, MD John 230 [place] [address] documented as of this encounter Visit Diagnoses Not on filedocumented in this encounter Additional Health Concerns Assessment Noted Time PHQ-9 Depression Total Score: 5 08/12/19 23 8:54 AM EDT documented as of this encounter Care Teams Joint Cutter Machine Relationship Specialty Start Date End Date Name, MD John [address] [place] [address] PCP - General Family Medicine 03/23/15 [employer] 02/25/22 documented as of this encounter
--- OUTSIDE RECORDS SUMMARY | 2024-10-18 10:52 | XMS_ITS | Encounter Summary ---
Author Organization [employer] Address 75 [facility] 7t [place] [address] Care Team Providers Care Picker Tender Name Role Phone Name, John VUONG Primary Care Provider [phone] Reason for Visit * Reason Comments Med Refill Encounter Details Date Type Department Care Team ([facility] Contact Info) Description 08/21/2023 Refill [facility] 230 [place], [place] [phone] Name, MD John 230 [place], [place] [phone] Heartburn Social History Tobacco Use Types Packs/Day [...] Recorded Patient Health Questionnaire-2 Score 2 03/31/2023 Sex and Gender Information Value Date Recorded Sex Assigned at Male 12/13/2021 10:17 AM EDT Legal Sex Male 10:17 AM EDT Gender Identity Male 12/13/2021 10:17 AM EDT Sexual Orientation Straight 12/13/2021 10 :17 AM EDT documented as of this encounter Plan of Treatment Upcoming Encounters Date Type Department Care Team (Late st Contact Info) Description 12/11/2024 10:45 AM EDT Office Visit [facility] MEDICINE [address] [place] [address] NameJohn MD [address] [place] [address] documented as of this encounter Visit Diagnoses Diagnosis Heartburn documented in this encounter Additional Health Concerns Assessment Noted Time PHQ-9 Depression Total Score: 6 03/31/19 24 8:50 AM EST documented as of this encounter Care Teams Picker Tender Relationship Specialty Start Date End Date Name, MD John [address] [place] [address] PCP - General Family Medicine 03/23/15 [employer] 02/25/22 documented as of this encounter
--- OUTSIDE RECORDS SUMMARY | 2024-10-18 10:52 | XMS_ITS | Encounter Summary ---
Author Organization [employer] Address 75 [facility] 7t [place] [address] Care Team Providers Care Home Help Aide Name Role Phone Name, John VUONG Primary Care Provider [phone] Reason for Visit * Reason Comments Med Refill Encounter Details Date Type Department Care Team ([facility] Contact Info) Description 02/07/2023 Refill [facility] [address] [place], [place] [phone] Name, MD John 230 [place], [place] [phone] Hypertension, unspecified type; Controlled diabetes mellitus type 2 with complications, unspecified whether vermin exterminator insulin use ([facility]) Social History Tobacco Use Types Packs/Day Years [...] Description 12/11/2024 10:45 AM EDT Office Visit [facility] MEDICINE [address] [place] [address] NameJohn MD [address] [place] [address] documented as of this encounter Visit Diagnoses Diagnosis Hypertension, unspecified type Controlled diabetes mellitus type 2 with complications, unspecified whether vermin exterminator insulin use ([facility]) documented in this encounter Additional Health Concerns Assessment Noted Time PHQ-9 Depression Total Score: 5 08/12/19 23 8:54 AM EDT documented as of this encounter Care Teams Home Help Aide Relationship Specialty Start Date End Date NameJohn MD [address] [place] [address] PCP - General Family Medicine 03/23/15 [employer] 02/25/22 documented as of this encounter
--- OUTSIDE RECORDS SUMMARY | 2024-10-18 10:52 | XMS_ITS | Encounter Summary ---
Author Organization [employer] Address 75 [facility] 7t [place] [address] Care Team Providers Care Control Panel Assembler Name Role Phone Name, John VUONG Primary Care Provider [phone] Reason for Visit * Reason Comments Med Refill Encounter Details Date Type Department Care Team ([facility] st Contact Info) Description 05/19/2023 Refill [facility] MEDICINE 230 [place], [place] [phone] Name, MD John [address] [place], [place] [phone] Social History Tobacco Use Types Packs/Day Years [...] Description 12/11/2024 10:45 AM EDT Office Visit [facility] MEDICINE [address] [place] [address] Name, MD John [address] [place] [address] documented as of this encounter Visit Diagnoses Not on filedocumented in this encounter Additional Health Concerns Assessment Noted Time PHQ-9 Depression Total Score: 6 03/31/19 24 8:50 AM EST documented as of this encounter Care Teams Control Panel Assembler Relationship Specialty Start Date End Date Name, MD John [address] [place] [address] PCP - General Family Medicine 03/23/15 [employer] 02/25/22 documented as of this encounter
--- OUTSIDE RECORDS SUMMARY | 2024-10-18 10:53 | XMS_ITS | Encounter Summary ---
Author Organization [facility] Address 75 [facility] 7t [place] [address] Care Team Providers Care Oracle Reports Developer Name Role Phone Name, John VUONG Primary Care Provider [phone] Encounter Details Date Type Department Care Team (Late Contact Info) Description 10/18/2022 Abstract [facility] [address] [place], [place] [phone] Livier Calderon 230 [place], [place] [phone] Social History Tobacco Use Types Packs/Day Years Used Date Smoking Tobacco: Never Smokeless Tobacco: Never Alcohol Use Standard Drinks/Week Comments Never 0 (1 standard drink = 0.6 oz pur e alcohol) Depression Answer Date Recorded Patient Health Questionnaire-9 Score 5 08/11/2022 Depression Answer Date Recorded Patient Health Questionnaire-2 [...] Description 12/11/2024 10:45 AM EDT Office Visit [facility] 230 [place], [place] [phone] Name, MD John [address] [place] [address] documented as of this encounter Visit Diagnoses Not on filedocumented in this encounter Additional Health Concerns Assessment Noted Time PHQ-9 Depression Total Score: 5 08/12/19 23 8:54 AM EDT documented as of this encounter Care Teams Oracle Reports Developer Relationship Specialty Start Date End Date Name, MD John [address] [place] [address] PCP - General Family Medicine 03/23/15 [employer] 02/25/22 documented as of this encounter
--- OUTSIDE RECORDS SUMMARY | 2024-10-18 10:53 | XMS_ITS | Encounter Summary ---
Author Organization [employer] Address 75 [facility] 7t [place] [address] Care Team Providers Care Manager Reading Name Role Phone Name, John VUONG Primary Care Provider [phone] Encounter Details Date Type Department Care Team (Late Contact Info) Description 10/05/2022 Orders Only [facility] MED & PEDS [address] [place] [address] Greta Mendez LPN Social History Tobacco Use [...] Encounters Date Type Department Care Team (Late Contact Info) Description 12/11/2024 10:45 AM EDT Office Visit [facility] MEDIC[facility] 230 [place], [place] [phone] Name, MD John [address] [place], [place] [phone] documented as of this encounter Visit Diagnoses Not on filedocumented in this encounter Additional Health Concerns Assessment Noted Time PHQ-9 Depression Total Score: 5 08/12/19 23 8:54 AM EDT documented as of this encounter Care Teams Manager Reading Relationship Specialty Start Date End Date Name, MD John [address] [place] [address] PCP - General Family Medicine 03/23/15 [employer] 02/25/22 documented as of this encounter
--- OUTSIDE RECORDS SUMMARY | 2024-10-18 10:53 | XMS_ITS | Encounter Summary ---
Author Organization [employer] Address 75 [facility] 7t [place] [address] Care Team Providers Care Community Center Director Name Role Phone Name, John VUONG Primary Care Provider Encounter Details Date Type Department Care Team (Late st Contact Info) Description 12/06/2022 Orders Only [facility] MED & PEDS [address] [place] [address] Greta Mendez LPN Social History Tobacco Use [...] Description 12/11/2024 10:45 AM EDT Office Visit [facility] MEDICINE 230 [place] [address] Name, MD John 230 [place] [address] documented as of this encounter Visit Diagnoses Not on filedocumented in this encounter Additional Health Concerns Assessment Noted Time PHQ-9 Depression Total Score: 5 08/12/19 23 8:54 AM EDT documented as of this encounter Care Teams Community Center Director Relationship Specialty Start Date End Date Name, MD John [address] [place] [address] PCP - General Family Medicine 03/23/15 [employer] 02/25/22 documented as of this encounter
--- OUTSIDE RECORDS SUMMARY | 2024-10-18 10:53 | XMS_ITS | Encounter Summary ---
Author Organization [employer] Address 75 [facility] 7t [place] [address] Care Team Providers Care Parking Lot Laborer Name Role Phone NameJohn MD Primary Care Provider [phone] Encounter Details Date Type Department Care Team (Late st Contact Info) Description 07/18/2022 Abstract [facility] MEDICINE [address] [place] [address] John Castañeda MD [address] [place] [address] Social History Tobacco Use Types Packs/Day Years [...] Description 12/11/2024 10:45 AM EDT Office Visit [facility] MEDICINE [address] [place] [address] John Castañeda MD [address] [place] [address] documented as of this encounter Visit Diagnoses Not on filedocumented in this encounter Care Teams Parking Lot Laborer Relationship Specialty Start Date End Date John Castañeda MD [address] [place] [address] PCP - General Family Medicine 03/23/15 [employer] 02/25/22 documented as of this encounter
--- OUTSIDE RECORDS SUMMARY | 2024-10-18 10:53 | XMS_ITS | Clinical Summary ---
Author Organization [employer] Address [address] [facility] [address] [place] [address] Care Team Providers Care Assistant Professor Of Physics Name Role Phone Name, John VUONG Primary Care Provider [phone] Allergies Active Allergy Reactions Criticality Noted Date Comments Penicillins 03/24/2015 Medications * This document contains information received from the source organization and may not represent a complete record from that organization. traZODone (Desyrel) 100 MG tablet Take 100 mg by mouth at bedtime. 023 Active PARoxetine (Paxil) 20 MG tablet Take 20 mg by mouth in the morning. 023 Active Diclofenac Sodium 1 % gelIndications :Type 2 diabetes mellitus with other specified complication, unspecified whether oil heaterman insulin use ([facility]) APPLY 2 GRAM TO THE AFFECTED AREA 4 (FOUR) TIMES DAILY 100 g 3 023 Active Acetaminophen Extra Strength 500 MG tablet Take 1 tablet (500 mg) by mouth every 8 (eight) hours if needed for moderate pain. 90 tablet 2 024 Active latanoprost (Xalatan) 0.005 % ophthalmic solution INSTILL 1 DROP IN EACH EYE ONCE DAILY AT BEDTIME 7.5 mL 1 024 Active FREESTYLE LITE test stripIndicatio ns:Type 2 diabetes mellitus with diabetic polyneuropathy , with long-term current use of insulin ([facility]) USE TO TEST FINGER STICK BLOOD SUGAR 4 (FOUR) TIMES DAILY 100 strip 11 024 Active Dulaglutide (Trulicity) 3 MG/0.5ML solution auto-injector Inject 3 mg under the skin 1 (one) time per week. 2 mL 11 025 2025 Active Jardiance 10 MGIndications: Type 2 diabetes mellitus with other specified complication, unspecified whether group home insulin use ([facility]) TAKE 1 TABLET BY MOUTH IN THE MORNING 30 tablet Active tamsulosin (Flomax) 0.4 MG 24 hr capsule TAKE 1 CAPSULE BY MOUTH ONCE DAILY 30 MINUTES AFTER same meal EVERY DAY 30 capsule Active cholecalcifero l VITAMIN D (Vitamin D-3) 50 MCG (1999 UT) tablet TAKE 1 TABLET BY MOUTH ONCE DAILY 30 tablet Active insulin lispro (HumaLOG) 100 UNIT/ML injection INJECT 7 UNITS SUBCUTANEOUSLY 3 (THREE) TIMES A DAY BEFORE BREAKFAST LUNCH AND SUPPER 6 mL Active Lantus SoloStar 100 UNIT/ML pen INJECT 15 UNITS SUBCUTANEOUSLY EVERY NIGHT AT BEDTIME PER insulin protocol 15 mL Active albuterol 108 (90 Base) MCG/ACT inhaler INHALE 2 PUFFS BY MOUTH INTO THE lungs EVERY 6 HOURS IF needed FOR WHEEZING 8.5 g Active Unifine SafeControl Pen Needle 30G X 5 MM miscIndication s:Type 2 diabetes mellitus with diabetic polyneuropathy , with long-term current use of insulin ([facility]) USE 4 (FOUR) TIMES DAILY 100 each Active FreeStyle lancetsIndicat ions:Type 2 diabetes mellitus with diabetic polyneuropathy , with long-term current use of insulin ([facility]) USE TO TEST FINGER STICK BLOOD SUGAR two (2) times a day 100 each Active metFORMIN (Glucophage) 500 MG tablet TAKE 2 TABLETS BY MOUTH EVERY MORNING AND ONE TABLET IN THE EVENING 90 tablet Active pravastatin (Pravachol) 20 MG tabletIndicati ons:Hypertensi on, unspecified type,Controlle d diabetes mellitus type 2 with complications, unspecified whether group home insulin use ([facility]) TAKE 1 TABLET BY MOUTH EVERY NIGHT AT BEDTIME 30 tablet Active Aspirin Low Dose 81 MG EC tablet TAKE 1 TABLET BY MOUTH ONCE DAILY 90 tablet Active omeprazole (PriLOSEC) [address] capsuleIndicat ions:Heartburn TAKE 1 CAPSULE BY MOUTH ONCE DAILY BEFORE A MEAL 90 capsule 025 Active lisinopril-hyd roCHLOROthiazi de 20-12.5 MG tabletIndicati ons:Hypertensi on, unspecified type Take 2 tablets by mouth Once per day. 30 tablet 5 025 Active lisinopril-hyd roCHLOROthiazi de 20-12.5 MG tabletIndicati ons:Hypertensi on, unspecified type TAKE 1 TABLET BY MOUTH ONCE DAILY 30 tablet 5 025 2024 Discontinued Active Problems Problem Noted Date Diagnosed Date Open broken tooth due to trauma without complica tion 10/19/2022 Periodontal disease 09/26/2022 Dental calculus 09/26/2022 Localized gingival recession 09/26/2022 Supernumerary tooth 09/26/2022 Type 2 diabetes mellitus with diabetic polyneuro tina 08/11/2022 Intellectual disability 08/11/2022 Overview (08/11/2022): illiteracy Glaucoma 05/10/2021 Tubular adenoma 06/23/2016 Chronic low back pain 10/30/2015 Anxiety 03/24/2015 Depressive disorder 03/24/2015 Hypercholesterolemia 03/24/2015 Hypertension 03/24/2015 Resolved Problems Problem Noted Date Diagnosed Date Resolved Date Impetigo 04/24/2017 08/11/2022 Ankle pain 03/29/2017 03/31/2023 Shoulder pain 03/29/2017 03/31/2023 Knee pain 03/02/2017 03/31/2023 Encounters * This document contains information received from the source organization and may not represent a complete record from that organization. Date Type Department Care Team Description 10/10/2024 Telephone [facility] [address] [facility] [place] [address] Name, MD John fyi 09/20/2024 Telephone [facility] [address] [facility] [place] [phone] Denise Torres [place] november recalls 08/23/2024 Refill [facility] [address] [facility] [place] [address] John Castañeda MD Heartburn 07/24/2024 Refill [facility] [address] [facility] [place] [phone] John Castañeda MD Hypertension, unspecified type; Controlled diabetes mellitus type 2 with complications, unspecified whether oil heaterman insulin use ([facility]) 07/19/2024 9:15 AM EDT Office Visit [facility] [address] [place] [address] John Castañeda MD Type 2 diabetes mellitus with diabetic polyneuropathy, with long-term current use of insulin ([facility]) (Primary Dx); Low blood pressure reading; Depression with anxiety 07/19/2024 Travel 07/18/2024 Telephone [facility] [address] [place] [address] Anne Sarabia MA Chart Prep from Last 3 Months Immunizations Immunization Administration Dates Next Due Influenza Injectable Quadriv alant Preservative Free IIV4 MDCK 01/26/2021 Influenza injectable quadriv alent IIV4 with preservative 11/28/2017,12/27/2016 Influenza injectable quadriv alent preservative free 03/31/2023,10/28/2015,10/14/2014 Influenza, High Dose Seasona l, Preservative Free 10/06/2023 Influenza, IIV3, injectable 10/14/2014,1 ,11/09/2012,11/14,11/19/2010,11/03/2009,10/28/2008 ,10/30/2007,12/20/2006 Influenza, intradermal, quad rivalent, preservative free 11/26/2013,11/19/2010 Novel [id number], preservative-free 01/27/2009 Pfizer Covid-19 Vaccine 12+ 02/16/2024 Pneumococcal Conjugate PCV 20 10/06/2023, 023 Pneumococcal Polysaccharide PPSV23 03/05/2007 Tdap 10/06/2023,,12/01/2010,11/21 Zoster, Recombinant 10/06/2023 Social History Tobacco Use Types Packs/Day Years Used Date Smoking Tobacco: Never Passive Smoke Exposure: Never Smokeless Tobacco: Never Tobacco Cessation:Counseling Given: Not Answered Alcohol Use Standard Drinks/Week Comments Never 0 (1 standard drink = 0.6 oz pur e alcohol) Depression Answer Date Recorded Patient Health Questionnaire-9 Score 2 07/19/2024 Patient Health Questionnaire-9 Score 2 07/19/2024 Last PHQ-9: Questionnaire Data Not on file 0 07/19/2024 Housing Stability Answer Date Recorded What is [...] Answer Date Recorded Patient Health Questionnaire-2 Score 0 07/19/2024 Internet Access Answer Date Recorded Internet Access Q1 Yes 09/05/2024 Internet Access Q2 Not on file 09/05/2024 Sex and Gender Information Value Date Recorded Sex Assigned at Male 12/13/2021 10:17 AM EDT Legal Sex Male 10:17 AM EDT Gender Identity Male 12/13/2021 10:17 AM EDT Sexual Orientation Straight 12/13/2021 10 :17 AM EDT Last Filed Vital Signs Vital Sign Reading Time Taken Comments Blood Pressure 96/68 07/19/2024 9:24 AM EDT Pulse 60 07/19/2024 9:24 AM EDT Temperature 36.6 C (97.8 F) 07/19/2024 9:24 AM EDT Respiratory Rate 17 07/19/2024 9:24 AM EDT Oxygen Saturation 98% 05/16/2024 12:05 PM EDT Inhaled Oxygen Concentration - - Weight 79.8 kg (176 lb) 07/19/2024 9:24 AM EDT Height 174 cm (5' 8.5 ) 07/19/2024 9:24 AM EDT Body Mass Index 26.37 07/19/2024 9:24 AM EDT Plan of Treatment Upcoming Encounters Date Type Department Care Team (Late st Contact Info) Description 12/11/2024 10:45 AM EDT Office Visit [facility] [address] [facility] [place] [address] Name, MD John Sugar [facility] [place] [address] Health Maintenance Due Date Last Done Comments CT Colonography 1956 FIT DNA/Cologuard 1956 FIT 1956 FOBT 1955 Sigmoidoscopy 1956 RSV Patients and Patients Aged 60 years or older (1 - Risk 60-74 years 1-dose series) 2016 Dental Oral Exam 03/30/2023 09/26/2022, , 11/06/2018, Additional history exists Dental Prophylaxis 03/30/2023 09/26/2022, 0 07/29/2020, 11/06/2018, Additional history exists Dental X-Ray: Full Mouth 07/31/2023 07/29/2020, 11/0 09/2015 Dental X-Ray: Bitewings 09/28/2023 09/27/19, 07/29/2020, 11/06/2018, Additional history exists Zoster Vaccines (2 of 2) 12/01/2023 10/06/2023 COVID-19 Vaccine ( season) 2024 02/16/2024, 10/20/2022, 11/04/2021, Additional history exists Influenza Vaccine (#1) 2024 , 03/31/2023, 01/26/2021, Additional history exists Diabetes: Hemoglobin A1C 01/18/2025 025, 02/16/2024, 06/30/2023, Additional history exists Eye Exam 02/14/2025 02/15/2024, 09/21/2021 Diabetes: Foot Exam 02/15/2025 02/16/2024, 02/16/2024, 02/16/2024, Additional history exists Alcohol/Substance Use Screening 07/19/2025 07/19/2024 Depression Screening 07/19/2025 07/19/2024, 07/20/19 SDOH Screening 07/19/2025 07/19/2024 Tobacco Screening 07/19/2025 07/19/2024 Diabetes: Urine Protein Screening 07/25/2025 07/25/2024, 06/30/2023, 08/12/2022 Lipid Panel 07/25/2025 07/25/2024, 06/13, 08/12/2022, Additional history exists Colonoscopy 05/26/2032 05/26/2022 Colorectal Cancer Screening 05/26/2032 DTaP/Tdap/Td Vaccines (5 - Td or Tdap) 10/05/2033 10/06/2023, 08/11/2022, 12/01/2010, Additional history exists Hepatitis C Screening Completed 12/29/2015 Pneumococcal Vaccine: 50+ Years Completed 10/06/2023, 08/11/2022, 03/05/2007 HIB Vaccines Aged Out No longer eligi [...] patient's age to complete this topic Meningococcal Vaccine Aged Out No leighton aisha eligible based on patient's age to complete this topic RSV under 20 months Aged Out No longe r eligible based on patient's age to complete this topic Rotavirus Vaccines Aged Out No longer eligible based on patient's age to complete this topic Procedures Procedure Name Priority Date/Time Associated Diagnosis Comments ALBUMIN, RANDOM URINE W/CREATININE Routine 07/25/2024 8:14 AM EDT Type 2 diabetes mellitus with diabetic polyneuropathy, with long-term current use of insulin ([facility]) LIPID PANEL, STANDARD Routine 07/25/2024 8:14 AM EDT Type 2 diabetes mellitus with diabetic polyneuropathy, with long-term current use of insulin ([facility]) COMPREHENSIVE METABOLIC PANEL Routine 07/25/2024 8:14 AM EDT Type 2 diabetes mellitus with diabetic polyneuropathy, with long-term current use of insulin ([facility]) POCT GLYCATED HEMOGLOBIN, TOTAL Routine 07/19/2024 9:26 AM EDT Type 2 diabetes mellitus with diabetic polyneuropathy, with long-term current use of insulin ([facility]) POCT GLUCOSE Routine 07/19/2024 9:26 AM EDT Type 2 diabetes mellitus with diabetic polyneuropathy, with long-term current use of insulin ([facility]) DIABETES EYE EXAM Routine 02/15/2024 Full PROPHYLAXIS - ADULT Routine 09/26/2022 1:00 PM EDT BITEWINGS - 4 RADIOGRAPHIC IMAGES Routine 09/26/2022 1:00 PM EDT PERIODIC ORAL EVALUATION - ESTABLISHED PATIENT Routine 09/26/2022 1:00 PM EDT COLONOSCOPY Routine 05/26/2022 INTRAORAL - COMPLETE SERIES OF RADIOGRAPHIC IMAGES Routine 07/29/2020 12:00 AM EDT HEPATITIS C ANTIBODY Routine 12/29/2015 from Last 3 Months or Most Recently Relevant to Health Maintenance Results * Albumin, Random Urine W/Creatinine (07/25/2024 8:14 AM EDT) Creatinine, Urine 146.27 mg/dL [facility] Microalbumin Urine 13.0 mg/L [facility] Microalbum Creatinine Ratio Ur 8.8 <30 ug/mg cr [facility] Comment:Albumin/Creatinine R at Reference Ranges: Normal: < 30 ug/mg creatinine Microalbuminuria: 30 - 300 ug/mg creatinineClinical Albuminuria: > 300 ug/mg creatinine Urine (Urine, Random) 07/25/2024 8:14 AM EDT 07/25/2024 11:11 AM EDT us John Castañeda MD LAB URINE ORDERABLES Final Resul t Performing Organization Address [facility] Co de Phone Number [facility] [address] [place] [address] [phone] * Lipid Panel, Standard (07/25/2024 8:14 AM EDT) Triglycerides 107 <150 mg/dL [facility] Comment:Desirable Triglyceri de: less than 150 mg/dLBorderline High Triglyceride 150-199 mg/dLHigh Triglyceride: 200-499 mg/dLVery High Triglyceride: greater than or equal to 5OO mg/dL Cholesterol 102 <200 mg/dL [facility] Comment:Desirable Cholestero l: less than 200 mg/dLBorderline High Cholesterol: 200-239 mg/dLHigh Cholesterol: greater than 239 mg/dL LDL Cholesterol Calculated 38 <100 mg/dL [facility] Comment:Desirable LDL: less than 100 mg/dLNear Optimal/Above Optimal LDL: 110- 129 mg/dLBorderline High LDL: 130-159 mg/dLHigh LDL: 160-189 mg/dLVery High LDL: greater than or equal to 190 mg/dL HDL Cholesterol 43 >40 mg/dL [facility] Comment:Desirable HDL: great er than 40 mg/dL Note: This HDL assay may give artificially low results in patients with liver disease. Blood Venous blood specimen / Unknown 07/25/2024 8:14 AM EDT 07/25/2024 11:10 AM EDT us John Castañeda MD LAB BLOOD ORDERABLES Final Resul t Performing Organization Address [facility] Co de Phone Number [facility] [address] [place] [address] [phone] * (ABNORMAL) Comprehensive Metabolic Panel (07/25/2024 8:14 AM EDT) Sodium 142 135 - 145 mmol/L [facility] Potassium 4.0 3.3 - 5.1 mmol/L [facility] Chloride 106 96 - 108 mmol/L [facility] Carbon Dioxide 32(H) 22 - 29 mmol/L [facility] Anion Gap 8(L) 12 - 20 [facility] Urea Nitrogen (BUN) 17(H) 9 - 16 mg/dL [facility] Creatinine, Serum 0.80 0.5 - 1.4 mg/dL [facility] Estimated Glomerular Filt Rate >60 [facility] Comment:Chronic Kidney Disea se: Estimated GFR < 60 mL/min/1.75u9Iyovir Kidney Disease: Estimated GFR < 15 mL/min/1.73m2 Glucose 103 60 - 115 mg/dL [facility] Calcium 8.4 8.4 - 10.2 mg/dL [facility] Bilirubin, Total 0.5 0.0 - 1.0 mg/dL [facility] Aspartate Amino Transferase 22 5 - 37 U/L [facility] Alanine Aminotransferase 15 0 - 40 U/L [facility] Total Protein 7.3 6.5 - 8.0 g/dL [facility] Albumin Level 4.1 3.5 - 5.0 g/dL [facility] Alkaline Phosphatase 63 39 - 117 U/L [facility] Blood Venous blood specimen / Unknown 07/25/2024 8:14 AM EDT 07/25/2024 11:10 AM EDT us John Castañeda MD LAB BLOOD ORDERABLES Final Resul t [facility] [address] [place] [phone] * (ABNORMAL) POCT HGB A1C (07/19/2024 9:26 AM EDT) Hemoglobin A1C 6.4(A) 4.0 - 6.0 % QC Media Lot # [id number] Lot# Expiration Date Blood 07/19/2024 9:26 AM EDT us John Castañeda MD POINT OF CARE TEST ENTER/EDIT OR DERABLES Final Result * POCT Glucose (07/19/2024 9:26 AM EDT) Glucose Blood, POC 117 60 - 200 mg/dL Comment:Random QC Media Lot # [id number] Lot# Expiration Date Blood Capillary blood specimen / Unknown 07/19/2024 9:26 AM EDT us John Castañeda MD POINT OF CARE TEST ENTER/EDIT OR DERABLES Final Result * Diabetes Eye Exam (02/15/2024) Eye Exam Normal Normal Comment:No Diabetic Retinopa thy, cont Glycemic control 02/15/2024 us John Castañeda MD HEALTH MAINTENANCE Final Result * Colonoscopy (05/26/2022) Colonoscopy Normal Normal Comment:Repeat in 10yrs [facility] Raghu VUONG HEALTH MAINTENANCE Final Result * Hepatitis C Antibody (12/29/2015) Hepatitis C Antibody Nonreactive Blood us John Castañeda MD HEALTH MAINTENANCE Final Result from Last 3 Months or Most Recently Relevant to Health Maintenance Insurance [employer] (O D-SNP) [place] [id number] [facility] - [facility] Care Teams Assistant Professor Of Physics Relationship Specialty Start Date End Date Name, MD John [address] [place] [address] PCP - General Family Medicine 03/23/15 [employer] 02/25/22
--- OUTSIDE RECORDS SUMMARY | 2024-10-18 10:53 | XMS_ITS | Encounter Summary ---
Author Organization [employer] Address [address] [place] [address] Care Team Providers Care Veterinarian Epidemiologist Name Role Phone Name, John VUONG Primary Care Provider [phone] Encounter Details Date Type Department Care Team (Late st Contact Info) Description 03/30/2022 Orders Only [facility] [address] [place] [address] Greta Mendez LPN Social History Tobacco Use [...] 10:45 AM EDT Office Visit [facility] [address] [place] [address] Name, MD John [address] [place] [address] documented as of this encounter Visit Diagnoses Not on filedocumented in this encounter Care Teams Veterinarian Epidemiologist Relationship Specialty Start Date End Date John Castañeda MD [address] [place] [address] PCP - General Family Medicine 03/23/15 [facility] 02/25/22 documented as of this encounter
[2024-10-18 11:34] LABS: Anion Gap 14 (12-20); Blood Urea Nitrogen 17 mg/dL (9-16); Calcium 9.1 mg/dL (8.4-10.2); Carbon Dioxide 29 mmol/L (22-29); Chloride 103 mmol/L (96-108); Estimated Glomerular Filt Rate > 60; Potassium 3.6 mmol/L (3.3-5.1); Sodium 142 mmol/L (135-145)
== END 2024-10-18 09:59 | disposition home or self-care (01) ==
LOC: HO.HHCL 09:58
PROVIDERS: PCP Internal Medicine Geriatric Medicine; Visit Provider Internal Medicine Geriatric Medicine
DX: I10 Essential (primary) hypertension (principal)
CPT/HCPCS: 36415; 80048